=== PATIENT | female | born 1960 | race Caucasian/White ===

== ENCOUNTER 2020-08-26 16:53 | Observation (INO) | payer OTHER ==
[~2020-08-26] VITALS: Ht 170.2 cm; Wt 89.5 kg
[~2020-08-26 16:53] MED LIST: ESTR1PAT79 TD; FLUT100D INH; FOLI-17 PO; MONT10TA6 PO; PROG100C10 PO
--- NOTE | 2020-08-26 17:03 | NUR ---
Triage Note: EKG done in triage
[2020-08-26 18:00] LABS: BASOPHILS % (AUTO) 1 % (0-1); EOSINOPHILS % (AUTO) 3 % (1-7); LYMPHOCYTES % (AUTO) 30 % (22-44); MEAN CORPUSCULAR HEMOGLOBIN 29.2 pg (27.0-34.8); MEAN CORPUSCULAR HGB CONC 33.8 g/dL (32.4-35.8); MEAN PLATELET VOLUME 8.6 fL (7.4-10.4); MONOCYTES % (AUTO) 9 % (2-9); NEUTROPHILS % (AUTO) 57 % (42-75); PLATELET COUNT 235 x10^3/uL (130-400); RED BLOOD COUNT 4.64 x10^6/uL (3.82-5.3); RED CELL DISTRIBUTION WIDTH 13.2 % (9.6-15.2)
[2020-08-26] MEDS ORDERED: ASPIRIN 81 MG TABLET CHEW PO ONE (18:00)
[2020-08-26] MEDS ORDERED: ACETAMINOPHEN 325 MG TABLET PO ONE (18:00)
[2020-08-26] MEDS ORDERED: IBUPROFEN 600 MG TABLET PO ONE (18:00)
[2020-08-26 18:03] LABS: ALBUMIN 3.8 g/dL (3.4-5.0); ANION GAP 6 mmol/L (5-15); CALCIUM 9.4 mg/dL (8.5-10.1); CHLORIDE 110 mmol/L (98-107); CREATININE 0.78 mg/dL (0.55-1.02)
[2020-08-26 18:04] LABS: MD NO
[2020-08-26] MEDS ORDERED: IBUPROFEN 600 MG TABLET ONE (18:05)
[2020-08-26] MEDS ORDERED: ASPIRIN 81 MG TABLET CHEW ONE (18:05)
[2020-08-26] MEDS ORDERED: ACETAMINOPHEN 500 MG TABLET ONE (18:05)
[2020-08-26 18:06] LABS: TROPONIN I < 0.015 ng/mL (0.000-0.045)
[2020-08-26] MEDS ORDERED: HYDROcodone/APAP 5/325 TABLET PO ONE (19:00)
[2020-08-26] MEDS ORDERED: ONDANSETRON ODT 4 MG PO ONE (19:00)
[2020-08-26] MEDS ORDERED: FLUTICASONE PROPIONATE INH SCH (20:00)
[2020-08-26] MEDS ORDERED: morphine SULFATE 10 MG/ML, 1ML IVPush PRN (20:00)
[2020-08-26] MEDS ORDERED: ACETAMINOPHEN 325 MG TABLET PO PRN (20:00)
[2020-08-26] MEDS ORDERED: NITROGLYCERIN 0.4 MG BOTTLE (25 TABS) SL PRN (20:00)
[2020-08-26] MEDS ORDERED: BISACODYL 10 MG SUPP PR PRN (20:00)
[2020-08-26] MEDS ORDERED: POLYETHYLENE GLYCOL 17 GM PACKET PO PRN (20:00)
[2020-08-26] MEDS ORDERED: ESTRADIOL TD SCH (20:00)
[2020-08-26] MEDS ORDERED: ONDANSETRON ODT 4 MG PO PRN (20:00)
--- NOTE | 2020-08-26 20:11 | NUR ---
PT RESTING AWAITING FAMILY WITH PHONE GAVE HER SOME SNACKS AND SHE READY FOR ADMIT NO NEW COMPLAINTS...
[2020-08-26] MEDS ORDERED: ONDANSETRON ODT 4 MG ONE (21:22)
[2020-08-26] MEDS ORDERED: HYDROcodone/APAP 5/325 TABLET ONE (21:23)
--- NOTE | 2020-08-26 21:40 | NUR ---
PT RESTING NO NEW COMPLAINTS GAVE [place] FOR THE C/P...
--- NOTE | 2020-08-26 22:35 | NUR ---
REPORT FROM JOY ASSUMED CARE OF PT AT THIS TIME
--- NOTE | 2020-08-26 22:58 | NUR ---
PT IS A HOLD IN ER AWAITING BED
[2020-08-26] MEDS ORDERED: MONTELUKAST 10 MG TABLET PO SCH (23:00)
[2020-08-27 04:45] LABS: CHOL/HDL RATIO 2.7; LDL/HDL RATIO 1.5 (0.5-3.0)
[2020-08-27] MEDS ORDERED: ASPIRIN 81 MG TABLET EC PO SCH (06:00)
[2020-08-27] MEDS ORDERED: ASPIRIN 81 MG TABLET CHEW ONE (06:45)
[2020-08-27 08:30] LABS: TROPONIN I < 0.015 ng/mL (0.000-0.045)
[2020-08-27] MEDS ORDERED: FOLIC ACID 1 MG TABLET PO SCH ×2 (09:00→21:00)
[2020-08-27] MEDS ORDERED: MONTELUKAST 10 MG TABLET PO SCH (09:00)
[2020-08-27] MEDS: SODIUM CHLORIDE FLUSH 10ML SYR IVF SCH ×2 (09:00→12:39)
[2020-08-27] MEDS ORDERED: SENNA/DOCUSATE TABLET PO SCH (09:00)
--- NOTE | 2020-08-27 09:06 | NUR ---
BREAK RN:PATIENT RESTING IN HOSPITAL BED, WATCHING TV, NADN, VSS. PATIENT ASKING WHEN STRESS TEST IS GOING TO BE.
[2020-08-27] MEDS ORDERED: REGADENOSON 0.4 MG/5 ML SYRINGE ONE (09:08)
--- NOTE | 2020-08-27 10:11 | NUR ---
Report called to [facility] on 5th floor for room 510-2. Nuclear medicine to come sweet pickle maker pt for stress test first in approx. 20 minutes. Pt has 4-5/10 CP, nonradiating and constant pressure. States [place] did not help much but refuses any other medications for pain at this time. Son at bedside and states he will be responsible for belongings upon leaving ED.
--- NOTE | 2020-08-27 10:43 | NUR ---
Pt being taken to nuclear medicine for stress test at this time by hospital bed. Son showed to ED waiting area by tech.
[2020-08-27 12:38] VITALS: BP 121/75
== END 2020-08-27 15:21 | disposition home or self-care (01) ==
LOC: ED 18:37 → INTOOBSV 19:25 → EDIP 19:25 → 5SO 08-27 12:30 → DCLOUNGE 08-27 15:18
PROVIDERS: ADMIT Family Medicine; ATTEND Family Medicine
DX: R07.89 Other chest pain (principal); J45.909 Unspecified asthma, uncomplicated; Z79.899 Other long term (current) drug therapy; Z86.718 Personal history of other venous thrombosis and embolism; Z86.711 Personal history of pulmonary embolism
CPT/HCPCS: 36415; 71045; 78452; 80048; 80061; 82040; 83880; 84443; 84484; 85025; 85379; 93005; 93017; 99285; A9502; G0378; J2785; Q0162

== ENCOUNTER → 2020-09-18 | Outpatient (CLI) | payer OTHER | END | disposition home or self-care (01) | LOC: CFH 13:03 | PROVIDERS: ATTEND Physician Assistant | DX: N64.4 Mastodynia (principal); R07.89 Other chest pain; Z98.82 Breast implant status | CPT/HCPCS: 76642; 77062; 77066; G0279 ==

== ENCOUNTER 2020-09-28 17:25 | Emergency (ER) | payer OTHER ==
[~2020-09-28] VITALS: Ht 170.2 cm; Wt 86.5 kg
--- NOTE | 2020-09-28 18:00 | NUR ---
BREAK RN: PT STATES SHE HAD CHEST PAIN TODAY THAT RADIATED TO RIGHT SIDE OF BACK. DENIES N/V. HX OF SAME, EXCEPT LEFT SIDED PAIN, NEG STRESS TEST. PT PLACED ON [employer]INE[employer] .NOT IN CURRENT DISTRESS
[2020-09-28] MEDS ORDERED: MAALOX/HYOSCYAMINE/LIDOCAINE 45 ML BTL PO ONE (18:30)
[2020-09-28 18:37] LABS: BASOPHILS % (AUTO) 1 % (0-1); EOSINOPHILS % (AUTO) 1 % (1-7); LYMPHOCYTES % (AUTO) 18 % (22-44); MEAN CORPUSCULAR HEMOGLOBIN 29.4 pg (27.0-34.8); MEAN CORPUSCULAR HGB CONC 33.6 g/dL (32.4-35.8); MEAN PLATELET VOLUME 8.3 fL (7.4-10.4); MONOCYTES % (AUTO) 6 % (2-9); NEUTROPHILS % (AUTO) 75 % (42-75); PLATELET COUNT 226 x10^3/uL (130-400); RED BLOOD COUNT 4.53 x10^6/uL (3.82-5.3); RED CELL DISTRIBUTION WIDTH 13.2 % (9.6-15.2)
[2020-09-28 18:43] LABS: MD NO
[2020-09-28 18:49] LABS: ALBUMIN 3.8 g/dL (3.4-5.0); CALCIUM 9.2 mg/dL (8.5-10.1)
[2020-09-28 18:54] LABS: ALANINE AMINOTRANSFERASE 21 U/L (12-78); ALKALINE PHOSPHATASE 102 U/L (45-117); BILIRUBIN,TOTAL 0.4 mg/dL (0.2-1.0); TOTAL PROTEIN 7.1 g/dL (6.4-8.2); TROPONIN I < 0.015 ng/mL (0.000-0.045)
[2020-09-28 18:58] LABS: ANION GAP 10 mmol/L (5-15); CHLORIDE 109 mmol/L (98-107)
[2020-09-28] MEDS ORDERED: MAALOX/HYOSCYAMINE/LIDOCAINE 45 ML BTL ONE (18:59)
--- NOTE | 2020-09-28 19:02 | NUR ---
ENDING MACHINE OPERATOR PER MAR.
[2020-09-28 19:03] VITALS: BP 138/72
--- NOTE | 2020-09-28 19:28 | NUR ---
ALL RESULTS ARE BACK AT THIS TIME. CHART UP FOR RECHECK.
== END 2020-09-28 20:25 | disposition home or self-care (01) ==
LOC: ED 19:56
DX: R07.89 Other chest pain (principal); Z86.718 Personal history of other venous thrombosis and embolism
CPT/HCPCS: 36415; 71045; 80053; 83690; 84484; 85025; 85379; 93005; 99285

== ENCOUNTER 2020-12-27 08:00 | Outpatient (CLI) | payer OTHER ==
[~2020-12-27 08:00] MED LIST changes: -FLUT100D INH; +FLUT100D2 INH; -FOLI-17 PO; +FOLI1TAB32 PO
[2020-12-27] MEDS ORDERED: VITAMIN E PO (15:51)
[2020-12-27] MEDS ORDERED: LEVO5TAB29 PO (15:51)
[2020-12-27] MEDS ORDERED: MOME13HF INH (15:51)
[2020-12-27] MEDS ORDERED: BIOTIN PO (15:51)
[2020-12-27] MEDS ORDERED: VITAMIN D3 PO (15:51)
[2020-12-27] MEDS ORDERED: DIAZ2TAB PO (15:51)
[2020-12-27] MEDS ORDERED: ZOLAIR (15:51)
[2020-12-27] MEDS ORDERED: VITAMIN B PO (15:51)
[2020-12-27] MEDS ORDERED: METAMUCIL PO (15:51)
[2020-12-27] MEDS ORDERED: CALC1TAB3 PO (15:51)
[2020-12-27] MEDS ORDERED: FISH1CAP PO (15:51)
[2020-12-27] MEDS ORDERED: ASPI81TA45 PO (15:51)
== END 2020-12-27 23:59 | disposition home or self-care (01) ==
LOC: STAR 08:00
PROVIDERS: ATTEND Thoracic Surgery (Cardiothoracic Vascular Surgery)
DX: Z01.812 Encounter for preprocedural laboratory examination (principal); Z20.822 Contact with and (suspected) exposure to COVID-19
CPT/HCPCS: 93005; U0003

== ENCOUNTER 2021-01-02 10:15 | Day surgery (SDC) | payer OTHER ==
[~2021-01-02] VITALS: Ht 170.2 cm; Wt 87.3 kg
[~2021-01-02 10:15] MED LIST changes: +ASPI81TA45 PO; +BIOTIN PO; +BUPIVACAINE/PF 0.5% ONE; +CALC1TAB3 PO; +CEFAZOLIN 1,000 MG ONE; +DIAZ2TAB PO; +EPINEPHRINE 1 MG/ML, 1ML ONE; +FENTANYL PF 250 MCG/5ML ONE; +FISH1CAP PO; +GLYCOPYRROLATE 0.2MG/1ML, 5ML ONE; +LEVO5TAB29 PO; +METAMUCIL PO; +MIDAZOLAM 1 MG/ML, 2ML ONE; +MOME13HF INH; +NEOSTIGMINE 1 MG/ML, 10ML ONE; +ONDANSETRON 2MG/ML, 2ML ONE; +PROPOFOL 10 MG/ML, 20ML ONE; +ROCURONIUM 10MG/ML,5ML ONE; +VITAMIN B PO; +VITAMIN D3 PO; +VITAMIN E PO; +ZOLAIR
[2021-01-02 10:33] VITALS: BP 146/78
[2021-01-02] MEDS ORDERED: CHLORHEXIDINE 15 ML UDC ONE (10:37)
[2021-01-02] MEDS ORDERED: CLINDAMYCIN 150 MG/ML, 6ML ONE (10:42)
[2021-01-02] MEDS ORDERED: DEXAMETHASONE 4 MG/ML, 1ML ONE (10:51)
[2021-01-02] MEDS ORDERED: hydrALAzine 20 MG/ML, 1ML IV PRN (11:00)
[2021-01-02] MEDS ORDERED: ACETAMINOPHEN 325 MG TABLET PO PRN (11:00)
[2021-01-02] MEDS ORDERED: OXYcodone 5 MG/5 ML ORAL.SOL UDC PO PRN (11:00)
[2021-01-02] MEDS ORDERED: HALOPERIDOL 5 MG/ML IV PRN (11:00)
[2021-01-02] MEDS ORDERED: PROMETHAZINE 25 MG/ML, 1ML IVPush PRN (11:00)
[2021-01-02] MEDS ORDERED: LABETALOL 5MG/ML, 20ML IV PRN (11:00)
[2021-01-02] MEDS ORDERED: HYDROmorphone 1 MG/ML, 1ML INJ IVPush PRN (11:00)
[2021-01-02] MEDS ORDERED: LACTATED RINGERS 1,000 ML IV SCH ×2 (11:00→12:00)
[2021-01-02] MEDS ORDERED: morphine SULFATE 10 MG/ML, 1ML IVPush PRN ×2 (11:00→12:00)
[2021-01-02] MEDS ORDERED: MEPERIDINE/PF 25MG/0.5ML IVPush PRN (11:00)
[2021-01-02] MEDS ORDERED: CHLORHEXIDINE 15 ML UDC PO ONE (11:00)
[2021-01-02] MEDS ORDERED: FENTANYL PF 100 MCG/2ML IV PRN (11:00)
[2021-01-02] MEDS ORDERED: HYDR-3237 PO (11:38)
[2021-01-02] MEDS ORDERED: ONDANSETRON 2MG/ML, 2ML IVPush PRN (12:00)
[2021-01-02] MEDS ORDERED: METHOCARBAMOL 1,000 MG in DEXTROSE 5% 100 ML IV ONE (12:00)
[2021-01-02] MEDS ORDERED: KETOROLAC 30 MG/1 ML IVPush PRN (12:00)
[2021-01-02] MEDS ORDERED: HYDROcodone/APAP 5/325 TABLET PO PRN (12:00)
[2021-01-02] MEDS ORDERED: KETOROLAC 30 MG/1 ML ONE (12:02)
[2021-01-02] MEDS ORDERED: OXYcodone 5 MG/5 ML ORAL.SOL UDC ONE (12:21)
== END 2021-01-02 14:40 | disposition home or self-care (01) ==
LOC: OUT 10:15
PROVIDERS: ATTEND Thoracic Surgery (Cardiothoracic Vascular Surgery)
DX: K80.10 Calculus of gallbladder with chronic cholecystitis without obstruction (principal); J45.909 Unspecified asthma, uncomplicated; Z79.82 Long term (current) use of aspirin; Z79.899 Other long term (current) drug therapy; Z88.8 Allergy status to other drugs, medicaments and biological substances
CPT/HCPCS: 47562; 88304; J0171; J0690; J1100; J1885; J2250; J2405; J2704; J2710; J2800; J3010; J7120